=== PATIENT | male | born 1950 | race Caucasian/White ===

== ENCOUNTER 2020-01-19 11:01 | Emergency (ER) | payer MEDICARE, SELFPAY ==
[2020-01-19 11:35] VITALS: BP 150/84; PULSE 99; RESP 20; TEMP 36.8; O2SAT 98
--- NOTE | 2020-01-19 12:52 | ED.URI ---
HPI - URI/Sore Throat General Chief Complaint: Upper Respiratory Infection Stated Complaint: Flu like symptoms Time Seen by Provider: 01/19/20 12:52 Source: patient and RN notes reviewed Mode of arrival: ambulatory Limitations: no limitations History of Present Illness HPI Narrative: 69-year-old male who presents to [facility] care with complaints of cough with clear nasal drainage since yesterday afternoon. Patient states he has been known exposure to influenza A from his daughter who was diagnosed on Monday. Patient denies any shortness of breath, lungs are clear to auscultation with SaO2 98% on room air. Patient denies any known fevers, chills, or sweats, or body aches. MD elicited complaint: cough, rhinorrhea and nasal congestion Onset (ago): day(s) (1) Consistency: constant Severity: mild Description of mucous: clear Able to tolerate fluids by mouth: Yes Exacerbating factors: nothing Relieving factors: nothing Context: sick contacts Associated symptoms: rhinorrhea and cough Related Data Home Medications Medication Instructions Recorded Confirmed lisinopril 5 mg PO DAILY 01/19/20 01/19/20 metformin 1,000 mg PO BID 01/19/20 01/19/20 tamsulosin 0.4 mg PO DAILY 01/19/20 01/19/20 Allergies Allergy/AdvReac Type Severity Reaction Status Date / Time cephalexin [From Keflex] Allergy Rash Verified 01/19/20 12:14 Review of Systems Review of Systems: Narrative: CONSTITUTIONAL: Denies fever, chills, or sweats. EYES: Denies visual changes, redness, or discharge. ENT: Voices rhinorrhea, congestion, no sore throat, or otalgia. CARDIOVASCULAR: Denies chest pain, palpitations, or edema. RESPIRATORY: Positive cough denies dyspnea. GASTROINTESTINAL: Denies abdominal pain, nausea, vomiting, or diarrhea. GENITOURINARY: Denies dysuria or hematuria. SKIN: Denies rash or itching. MUSCULOSKELETAL: Denies back pain, joint pain, or myalgia. NEUROLOGIC: Denies headache, numbness, or weakness. PSYCHIATRIC: Denies anxiety or depression. All systems reviewed & are unremarkable except as noted in HPI and below PMFSH Past Medical History Medical History (Updated 01/19/20 @ 13:06 by Precious Hernandez NP) BPH (benign prostatic hyperplasia) Diabetes Hypertension Social History Social History (Updated 01/19/20 @ 12:55 by Precious Hernandez NP) Living arrangements: with family Gender identity (if verbalized by the patient): Male Comments At time of signature, agree with nursing past medical, surgical, social and family history. There is no relevant family history pertinent to the presenting complaint Exam Narrative: Exam Narrative: GENERAL: Well-appearing, well-nourished, and in no acute distress. HEAD: Normocephalic, atraumatic. EYES: PERRLA and EOMI. ENT: Nares red clear rhinorrhea no epistaxis. Mucous membranes moist. TMs normal with good light reflex throat pink with no lesions or exudates NECK: Supple. No lymphadenopathy CHEST: Clear to auscultation. No respiratory distress. SaO2 98% on room air HEART: Regular rate and rhythm. No murmur heard. Normal peripheral pulses. ABDOMEN: Soft, nontender, nondistended, normal active bowel sounds. EXTREMITIES: Normal range of motion. No edema. SKIN: Warm, dry, no rash. NEURO: No focal deficits. Alert and oriented x3. Course Vital Signs Vital signs: Vital Signs Temperature 36.8 C 01/19/20 11:35 Pulse Rate 99 01/19/20 11:35 Respiratory Rate 20 01/19/20 11:35 Blood Pressure 150/84 H 01/19/20 11:35 Pulse Oximetry 98 01/19/20 11:35 Temperature 36.8 C 01/19/20 11:35 Pulse Rate 99 01/19/20 11:35 Respiratory Rate 20 01/19/20 11:35 Blood Pressure 150/84 H 01/19/20 11:35 Pulse Oximetry 98 01/19/20 11:35 MDM - URI/Sore Throat Differential Diagnosis Differential diagnosis: Likely upper respiratory infection, viral infection, influenza, pharyngitis and other (Rhinitis) Medical Records Attestation: I reviewed the patient's medical records. Lab Data
== END 2020-01-19 13:10 | disposition home or self-care (01) ==
PROVIDERS: Emergency Provider Registered Nurse
DX: J00 Acute nasopharyngitis [common cold] (principal); N40.0 Benign prostatic hyperplasia without lower urinary tract symptoms; E11.9 Type 2 diabetes mellitus without complications; I10 Essential (primary) hypertension
CPT/HCPCS: 87804; 99202; G0463

== ENCOUNTER 2022-03-28 14:23 | Outpatient (CLI) | payer MEDICARE, SELFPAY ==
--- NOTE | ~2022-03-28 | US_ITS ---
EXAMINATION: US retroperitoneal comp, US retroperitoneal duplex ltd DATE: 03/28/2022 16:13 INDICATION: Hypertension TECHNIQUE: Multiple grayscale and Doppler ultrasound images of the kidneys were obtained. COMPARISON: None. FINDINGS: The right kidney measures 10.1 x 5.6 x 4.3 cm. There is a 3.3 cm cyst of the right kidney u pper pole. The left kidney measures 9.8 x 5.1 x 4.8 cm. Cysts of the left kidney measure up to 2.8 cm . The kidneys demonstrate normal parenchymal echogenicity. There is no hydronephrosis. The bladder ap pears normal. Prevoid bladder volume is 1430 CDT. Post void bladder volume is 223 cc. The right renal artery peak systolic velocity is 114 cm/s in the proximal segment, 119 cm/s in the mi d segment, and 114 cm/s in the distal segment. The left renal artery peak systolic velocity is 180 cm /s in the proximal segment, 104 cm/s in the mid segment, and 91 cm/s in the distal segment. IMPRESSION: 1. No Doppler evidence of renal artery stenosis. 2. Unremarkable kidneys without hydronephrosis. 3. Urinary retention. Reviewed, dictated and finalized at location A. IMPRESSION: 1. No Doppler evidence of renal artery stenosis. 2. Unremarkable kidneys without hydronephrosis. 3. Urinary retention.
== END 2022-03-28 14:24 | disposition home or self-care (01) ==
PROVIDERS: PCP Internal Medicine; Visit Provider Internal Medicine Nephrology
DX: I10 Essential (primary) hypertension (principal); E11.21 Type 2 diabetes mellitus with diabetic nephropathy; I12.9 Hypertensive chronic kidney disease with stage 1 through stage 4 chronic kidney disease, or unspecified chronic kidney disease; E11.22 Type 2 diabetes mellitus with diabetic chronic kidney disease; N18.32 Chronic kidney disease, stage 3b; R33.9 Retention of urine, unspecified
CPT/HCPCS: 76770; 93976

== ENCOUNTER 2023-06-27 10:35 | Emergency (ER) | payer MEDICARE, SELFPAY ==
[2023-06-27 10:42] VITALS: BP 139/71; PULSE 70; RESP 20; TEMP 36.7; O2SAT 100
--- NOTE | 2023-06-27 10:42 | ED.URI ---
HPI - URI/Sore Throat General Stated Complaint: Congestion/Sore Throat/Cough Source: patient and RN notes reviewed History of Present Illness HPI Narrative: 72 yo M presents to urgent care with complaints of congestion, cough, runny nose x 2 days. Pt states his daughter was diagnosed with bronchitis last week and he's thinking he might have something similar. Pt states he has a mild sore throat with coughing. Pt denies any fevers, chills, SOB, chest pain, ear pain, DURAND, N/V/D, or any other symptoms. Pt took some Nyquil last night. Related Data Home Medications Medication Instructions Recorded Confirmed tamsulosin 0.4 mg capsule 0.4 mg PO DAILY 01/19/20 06/27/23 carvedilol 25 mg tablet 25 mg PO DIRECTED 06/27/23 06/27/23 insulin aspar prot-insulin aspart 12 unit subcut DIRECTED 06/27/23 06/27/23 100 unit/mL (70-30) subcutaneous pen (Novolog Mix 70-30FlexPen U-100) nifedipine 90 mg tablet,extended 90 mg PO DIRECTED 06/27/23 06/27/23 release Allergies Allergy/AdvReac Type Severity Reaction Status Date / Time cephalexin [From Keflex] Allergy Rash Verified 06/27/23 10:48 Review of Systems Review of Systems: Pertinent positives and pertinent negatives per HPI. [facility] Past Medical History Medical History (Updated 06/27/23 @ 10:56 by Loli Bach APRN) BPH (benign prostatic hyperplasia) Diabetes Hypertension Social History Social History (Updated 01/19/20 @ 12:55 by Precious Hernandez NP) Living arrangements: with family Gender identity (if verbalized by the patient): Male Comments At the time of my signature, I reviewed and agree with the nursing past medical, surgical, social, and family history. There is no relevant family history pertinent to the patient complaint. Exam Narrative: GENERAL: This is a well-nourished, well-developed patient, in no apparent distress. HEAD: normocephalic, atraumatic. EYES: Sclera clear/white. Vision is grossly intact. EARS: External ears normal, auditory canals clear and without drainage, TMs normal without perforation. Hearing grossly intact. NOSE: External nose normal with no obvious nasal discharge, nares without redness, no rhinorrhea. THROAT: Mucous membranes moist, posterior pharynx clear. NECK: Neck supple, non-tender without lymphadenopathy, masses or thyromegaly. CARDIOVASCULAR: Regular rate and rhythm without murmurs, gallops, or rubs. RESPIRATORY: Clear to auscultation. Breath sounds equal bilaterally. No wheezes, rales, or rhonchi. GASTROINTESTINAL: Abdomen soft, non-tender, nondistended. Bowel sounds are active. No hepato-splenomegaly, or palpable masses. No guarding. SKIN: warm, intact with no suspicious lesions or rash, good texture and turgor. NEURO: awake, alert, and oriented to person, place and time. There were no obvious focal neurologic abnormalities. EXTREMITIES: No clubbing, cyanosis, or edema. No joint tenderness, effusion, or edema noted. BACK: Nontender without deformity or crepitus. No flank tenderness. Course Course Level of Care: Express Care Visit Vital Signs Vital signs: revviewed MDM - URI/Sore Throat MDM Narrative Medical decision making narrative: May use the inhaler every 4-6 hours as needed for coughing. Increase fluids at home. Avoid any and all smoke. May use a humidifier in the bedroom. Increase your Vitamin C. Follow-up with personal physician in 2-5 days. Viral illness may last between 7-12days; antibiotic is NOT recommended at this time. Recommend antihistamine such as Benadryl at night time and Claritin/Zyrtec/Genoveva during the day. Increase your Vitamin C intake. Steam from hot showers help with congestion. Use inhaler as needed for cough, wheezing, shortness of breath or chest tightness. Also, recommend symptomatic treatment includes: rest, fluids, increase humidity of the air at home with a humidifier in the bedroom. Recommend Acetaminophen or nonsteroidal anti-inflammatory agents(NSAIDs)
[2023-06-27 10:50] VITALS: BP 139/71; PULSE 70; RESP 20; TEMP 36.7; O2SAT 100
== END 2023-06-27 11:04 | disposition home or self-care (01) ==
PROVIDERS: Emergency Provider Nurse Practitioner Family; PCP Internal Medicine
DX: J40 Bronchitis, not specified as acute or chronic (principal); J06.9 Acute upper respiratory infection, unspecified; N40.0 Benign prostatic hyperplasia without lower urinary tract symptoms; E11.9 Type 2 diabetes mellitus without complications; I10 Essential (primary) hypertension
CPT/HCPCS: 99213; G0463